=== PATIENT | female | born 2000 | race African-American/Black ===

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

== ENCOUNTER 2018-04-13 06:27 | Day surgery (SDC) | payer OTHER ==
[2018-04-12 12:55] VITALS: BMI 29.5
[2018-04-13] MEDS ORDERED: fentaNYL CITRATE 250 MCG/5 ML VIAL ONE (07:20)
[2018-04-13] MEDS ORDERED: LIDOCAINE HCL/PF 2% SDV 5ML VIAL ONE (07:20)
[2018-04-13] MEDS ORDERED: SUCCINYLCHOLINE CHLORIDE 200 MG/10 ML VIAL ONE (07:20)
[2018-04-13] MEDS ORDERED: MIDAZOLAM HCL 2 MG/2 ML SINGLE DOSE VIAL ONE ×3 (07:20→07:23)
[2018-04-13] MEDS ORDERED: PROPOFOL 20 ML ONE ×2 (07:20→09:28)
[2018-04-13] MEDS ORDERED: ROPIVACAINE HCL 0.5% 30ML VIAL ONE (07:22)
[2018-04-13] MEDS ORDERED: DEXAMETHASONE SOD PHOSPHATE 4 MG/1 ML VIAL ONE (08:06)
--- NOTE | 2018-04-13 08:09 | HP ---
Satellite [facility] - Chief Complaint Chief Complaint: left knee pain - Past Medical History Allergies/Adverse Reactions: Allergies Allergy/AdvReac Type Severity Reaction Status Date / Time aspirin Allergy Vomiting Verified 04/12/18 12:49 ibuprofen [From Motrin] Allergy Vomiting Verified 04/12/18 12:49 naproxen Allergy Vomiting Verified 04/12/18 12:49 Penicillins Allergy Rash Verified 04/12/18 12:49 ...LMP: 03/22/18 - Current Medications Current Medications: Home Medications Medication Instructions Recorded Norgestimate-Ethinyl Estradiol 1 each PO DAILY 04/12/18 [Trinessa Lo Tablet] Oxycodone HCl/Acetaminophen 1 - 2 tab PO Q6H #50 tab MDD 8 04/13/18 [Percocet 5-325 mg Tablet -] Satellite Physical Exam - Physical Examination Vital Signs: Vital Signs Period Temp Pulse Resp BP Sys/Chauhan Pulse Ox Last 24 Hr 98.7 F 86 20 138/71 General Appearance: Well Nourished, Well Developed, Alert & Oriented x3 ENT: Clear Lung: Normal air movement Heart: Regular rate & rhythm Extremities: Other (left knee- + swelling, + ttp, decr rom, + genna, + pivot, + ant draw, nvi MRI + ACL rupture) Neurological: Intact, Alert, Oriented Satellite Impression/Plan - Impression/Plan Impression: left knee ACL rupture Operative Procedure: left knee arthroscopy with ACL reconstruction using graftlink allograft Date to be Performed: 04/13/18
[2018-04-13] MEDS ORDERED: ceFAZolin SODIUM 1 GM VIAL IVPB ONE (08:15)
[2018-04-13] MEDS ORDERED: ceFAZolin SODIUM 1 GM VIAL ONE ×2 (08:20→12:27)
--- NOTE | 2018-04-13 09:33 | OP ---
Operative Note - Note: Operative Date: 04/13/18 ([facility]) Pre-Operative Diagnosis: left knee internal derangement Operation: left knee arthroscopy with ACL reconstruction using graftlink allogaft, PMM, PLM Implants: graftlink Post-Operative Diagnosis: Same as Pre-op Surgeon: Akshat Camargo Glaciologist: Ralph Lawrence Anesthesiologist/CRACKER DOUGH MIXER: Nena Grayson Anesthesia: General, Local Specimens Removed: shavings Estimated Blood Loss (mls): 5 Operative Report Dictated: Yes
[2018-04-13] MEDS ORDERED: ONDANSETRON 4 MG/2 ML VIAL IVPUSH PRN (09:40)
[2018-04-13] MEDS ORDERED: PROMETHAZINE HCL 25 MG/1 ML VIAL IVPUSH PRN (09:40)
[2018-04-13] MEDS ORDERED: oxyCODONE HCL 5 MG TABLET PO PRN ×2 (09:40)
[2018-04-13 11:15] VITALS: TEMP 97.8
[2018-04-13] MEDS ORDERED: oxyCODONE HCL 5 MG TABLET ONE (12:34)
--- NOTE | 2018-04-13 13:29 | OP ---
DATE OF OPERATION: 04/13/2018 PREOPERATIVE DIAGNOSIS: Left anterior cruciate ligament tear. POSTOPERATIVE DIAGNOSIS: Left anterior cruciate ligament tear plus medial and lateral meniscus tear. PROCEDURE: Left anterior cruciate ligament reconstruction with GraftLink and patella medial and lateral meniscectomies. SURGICAL ATTENDING: Akshat Camargo MD FAT PURIFICATION WORKER: PATTY Santa ANESTHESIA: Regional and general. CLOSURE: GraftLink with appropriate fixation and 3-0 nylon for skin. ESTIMATED BLOOD LOSS: Negligible. COMPLICATIONS: None. CONDITION: To recovery room in stable condition. DESCRIPTION OF PROCEDURE: The patient was taken to the operating room on April 13, 2018. General anesthesia as well as regional anesthesia was administered by the anesthesiologist. IV Kefzol was administered prophylactically prior to the case. The patient's left lower extremity was prepped and draped in the usual sterile fashion. The GraftLink graft was thawed and prepared on the back table for appropriate use with appropriate markings and sutures applied. The superomedial and medial and lateral infrapatellar portal sites were infiltrated with 1% Xylocaine with epinephrine. All portals were made with a 15 blade with blunt trocar. Outflow was superomedially. Working portal was inferomedially, and the scope portal was inferolaterally. The scope was placed up into the pouch and visualized to be clean. The medial and lateral gutters were visualized to be clean. The undersuface of the patella and trochlea were visualized to be intact with valgus stress on the knee. The medial compartment was entered. The medial meniscus was found to have flipped with bucket handle tear, so it was debrided back to smooth, stable meniscal tissue with meniscal biter and arthroscopic shaver as the morphology of the tear was nonfixable. The lateral compartment was entered. The lateral meniscus also had a large tear of its posterior horn, which was debrided back to smooth and stable meniscal tissue with meniscal biter and arthroscopic shaver. Next, the scope was placed in the notch. The ACL was visualized to be completely torn. Its stump was debrided. A notchplasty was performed gaining sufficient width and height to perform the procedure. Using an [id number] guide and using a retrodrill, a 10-mm tunnel approximately 25 mm was drilled in the posterior aspect on the notch low on the wall not violating the lateral cortex. A suture was put through this tunnel and placed a FiberStick suture exiting the portal for later shuttle use. Next, the tibial guide was used to visualize 10-mm retrograde tunnel just anterior to the PCL into the anterior and medial proximal tibia and again not violating the cortex. Through this tunnel again a FiberStick suture was deployed as a shuttle suture. Both sutures exited the inferomedial portal. The shuttle suture was used to pull a GraftLink into the knee and pull the femoral button up until it engaged the lateral cortex of the femur. It was then cycled to ensure that it was flush on bone. The toggle sutures were then used to toggle the graft up into the femur. The traction suture was then used to pull the tibial second of the graft into the tibial tunnel. A button was deployed as well. Toggle sutures were used with the knee in extension to tighten up the graft. The knee was taken through a full range of motion and from full extension to full flexion with excellent tensioning of the ACL, good crossing of the PCL. The sutures were cut snug. Post exam the patient had full range of motion, negative anterior and posterior drawer, negative Viv, negative pivot shift. All of the portals were closed using 3-0 nylon. Sterile pressure dressing was applied. The patient was awakened from anesthesia and transferred to recovery room in stable condition. Knee immobilizer was applied. Arianna [id number]
[2018-04-13] MEDS ORDERED: CEFAZOLIN 1 GM in DEXTROSE 5%-WATER - 50 ML IVPB ONE (14:00)
[2018-04-13 15:44] VITALS: BP 127/70; PULSE 100
--- NOTE | 2018-04-16 13:01 | PATH ---
Surgical Pathology Report Patient Name: [facility]. Rec. #: [id number] /Age/Gender: 2000 (Age: 17) / F Account: [id number] Location: [facility] SUR[facility]ICAL Taken: 04/13/2018 Received: 04/13/2018 Reported: 04/16/2018 Physicians: Akshat Camargo M.D. Specimen(s) Received LEFT KNEE SHAVINGS Clinical History Left ACL tear Final Diagnosis KNEE SHAVINGS, LEFT, ACL REPAIR WITH GRAFT LINK ALLOGRAFT: FRAGMENTS OF DENSE FIBROCONNECTIVE TISSUE, BONE, AND SYNOVIUM. Electronically Signed Mindy Cam M.D. Gross Description Received in formalin, labeled "left knee shavings" is a 4 x 4 x 1 cm aggregate of roberts to yellow soft tissue fragments. A customer success representative portion is submitted in one cassette. SHIN/04/13/2018 clif/04/13/2018
== END 2018-04-13 15:25 | disposition home or self-care (01) ==
LOC: JASU-SURG 06:27
PROVIDERS: ATTEND Orthopaedic Surgery
PROC: 0SBD4ZZ Excision of Left Knee Joint, Percutaneous Endoscopic Approach (ICD-10-PCS; 2018-04-13)
PROC: 0MQP4ZZ Repair Left Knee Bursa and Ligament, Percutaneous Endoscopic Approach (ICD-10-PCS; 2018-04-13)
PROC: 0SBD4ZZ Excision of Left Knee Joint, Percutaneous Endoscopic Approach (ICD-10-PCS; principal; 2018-04-13 08:00)
DX: S83.512A Sprain of anterior cruciate ligament of left knee, initial encounter (principal); S83.282A Other tear of lateral meniscus, current injury, left knee, initial encounter; S83.242A Other tear of medial meniscus, current injury, left knee, initial encounter; X58.XXXA Exposure to other specified factors, initial encounter; Y93.9 Activity, unspecified; Y92.9 Unspecified place or not applicable; Y99.9 Unspecified external cause status
CPT/HCPCS: 84703; 88304-TC; 94760; 97116-GP

== ENCOUNTER 2020-05-17 14:07 | Emergency (ER) | payer OTHER ==
[2020-05-17 14:16] VITALS: BP 131/72; PULSE 57; BMI 29.7
[2020-05-17] MEDS ORDERED: ONDANSETRON 4 MG/2 ML VIAL IVPUSH ONE (14:29)
[2020-05-17] MEDS ORDERED: ACETAMINOPHEN 1000 MG/100 ML VIAL (NON FORMULARY) IVPB ONE (14:29)
[2020-05-17] MEDS ORDERED: SODIUM CHLORIDE 0.9% 1000 ML INFUS.BAG IV ONE (14:29)
[2020-05-17] MEDS ORDERED: FAMOTIDINE 20 MG/50 ML IVPB 20 MG/50 ML MG IVPB ONE ×2 (14:29→14:40)
[2020-05-17] MEDS ORDERED: ONDANSETRON 4 MG/2 ML VIAL ONE (14:41)
[2020-05-17 15:09] LABS: BASO % 0.3 % (0-2.0); HEMATOCRIT 37.9 % (32.4-45.2); HEMOGLOBIN 12.6 GM/dl (10.7-15.3); LYMPH % 5.9 % (8-40); MCH 23.8 pg (25.7-33.7); MCHC 33.2 g/dl (32.0-36.0); MEAN CELL VOLUME 71.7 fl (80-96); MEAN PLT VOLUME 8.7 fl (7.5-11.1); NEUT % 89.8 % (42.8-82.8); PLATELET COUNT 331 K/MM3 (134-434); RBC 5.28 M/mm3 (3.60-5.2); WHITE BLOOD COUNT 16.2 K/mm3 (4.0-10.8)
[2020-05-17 15:27] LABS: ALBUMIN 4.6 g/dl (3.4-5.0); BILIRUBIN,TOTAL 1.5 mg/dl (0.2-1); CALCIUM 9.7 mg/dl (8.5-10); CREATININE 0.8 mg/dl (0.55-1.3); POTASSIUM 3.7 mmol/L (3.5-5.1); TOT PROT 7.7 g/dl (6.4-8.2)
[2020-05-17] MEDS ORDERED: METOCLOPRAMIDE HCL INJECTION 10 MG/2 ML VIAL IVPB ONE (16:38)
[2020-05-17] MEDS ORDERED: METOCLOPRAMIDE HCL INJECTION 10 MG/2 ML VIAL ONE (16:40)
[2020-05-17 17:41] LABS: EPITHELIAL CELLS RARE /hpf
--- NOTE | 2020-05-17 18:50 | PDOC ---
Documentation entered by Mindy Hurtado SCRIBE, acting as scribe for Darci Montague MD. Darci Montague MD: This documentation has been prepared by the scribeBryant Maria, SCRIBE, under my direction and personally reviewed by me in its entirety. I confirm that the documentation accurately reflects all work, treatment, procedures, and medical decision making performed by me. History of Present Illness - General Chief Complaint: Nausea/Vomiting Stated Complaint: NAUSEA/VOMITING Time Seen by Provider: 05/17/20 14:11 History Source: Patient Exam Limitations: No Limitations - History of Present Illness Initial Comments: 05/17/20 14:36 The patient is a 19 year old female with a significant past history of Asthma who presents to the emergency department with 3 days of nausea and vomiting. As per the patients mom, she states the patient had pizza with gamino on it Monday night, and woke up Monday morning with one episode of diarrhea which later followed with multiple episodes of persistent nausea and vomiting. Patient reports they went to Urgent Care where she was prescribed zofran with no relief of symptoms prompting her to the emergency department. Past History - Medical History Allergies/Adverse Reactions: Allergies Allergy/AdvReac Type Severity Reaction Status Date / Time aspirin Allergy Vomiting Verified 05/20/20 08:15 ibuprofen [From Motrin] Allergy Vomiting Verified 05/20/20 08:15 naproxen Allergy Vomiting Verified 05/20/20 08:15 Penicillins Allergy Rash Verified 05/20/20 08:15 Home Medications: Ambulatory Orders Albuterol Sulfate Inhaler - [Ventolin HFA Inhaler -] 1 - 2 inh PO QID PRN 05/17/20 Fluticasone Propionate [Flovent Hfa] 44 mcg IH ASDIR 05/17/20 Famotidine [Pepcid -] 20 mg PO PRN PRN 05/20/20 Anemia: No Asthma: Yes Cancer: No Cardiac Disorders: No CVA: No COPD: No CHF: No Dementia: No Diabetes: No GI Disorders: No Disorders: No HTN: No Hypercholesterolemia: No Liver Disease: No Seizures: No Thyroid Disease: No - Immunization History Immunization Up to Date: Yes - Psycho-Social/Smoking History Smoking Status: No Smoking History: Never smoked Have you smoked in the past 12 months: No Number of Cigarettes Smoked Daily: 0 - Substance Abuse Hx (Audit-C & DAST Scrn) How often the patient has a drink containing alcohol: Never Score: In Men: 4 or > Positive; In Women: 3 or > Positive: 0 Screen Result (Pos requires Nsg. Audit-10AR): Negative In the last yr the pt used illegal drug/Rx for NonMed reason: No Score: Yes response is considered Positive: 0 Screen Result (Positive result requires Nsg. DAST-10): Negative Review of Systems - Review of Systems Able to Perform ROS?: Yes Comments:: 05/17/20 14:36 ROS: A complete review of 10 out of 10 review of systems is taken and is negative apart from what is previously mentioned below and in the HPI. *Physical Exam - Vital Signs Last Vital Signs Temp Pulse Resp BP Pulse Ox 98.3 F 57 L 18 131/72 100 05/17/20 14:07 05/17/20 14:07 05/17/20 14:07 05/17/20 14:07 05/17/20 14:07 - Physical Exam 05/17/20 14:36 Vitals: Triage Vital signs reviewed General Appearance: no acute distress, well nourished well developed, Chest Wall: Nontender Cardiac: Regular rate and rhythm, no murmurs, no rubs, no gallops, Lungs: Clear to auscultation bilateral, good air movement bilaterally, Abdomen:+left upper quadrant tenderness to palpation. Soft, nondistended, normal bowel sounds. Rectal: Exam deferred Extremities: Full range of motion to all extremities, no cyanosis, clubbing, or edema Skin: Warm and dry, no rashes or lesions, no petechiae ED Treatment Course - LABORATORY CBC & Chemistry Diagram: 05/17/20 15:03 05/17/20 14:36 Medical Decision Making - Medical Decision Making 05/17/20 18:49 2-day history of multiple episodes of vomiting with left upper quadrant pain unable to tolerate fluids In the emergency department patient received fluids Zofran and Pepcid is now feeling much better. Reevaluation her left upper quadrant pain has improved Reevaluation abdominal examination 645 no rebound no guarding no lower abdominal discomfort no CVA tenderness to palpation minimal, almost completely gone left upper quadrant tenderness to palpation her laboratory analysis is notable for a leukocytosis I believe this to be secondary to either a viral or foodborne illness Discussed risks and benefits of CAT scan with patient given improving symptoms no abdominal pain and now the ability to tolerate p.o. we will hold off on a CAT scan at this time. Patient understands that should she spike a fever should her pain return and become persistent constant she will return to the emergency department for a CAT scan patient has Zofran at home very strict instructions discussed with patient she will follow-up with her doctor this week Findings, the need for follow-up and strict return instructions discussed with patient. Discharge - Discharge Information Problems reviewed: Yes Clinical Impression/Diagnosis: Nausea & vomiting Condition: Stable Disposition: HOME - Admission No - Follow up/Referral - Patient Discharge Instructions Patient Printed Discharge Instructions: DI for Vomiting -- Adult Additional Instructions: Take 1 pill Zofran tonight before you go to bed your next dose will be in the morning. Small frequent sips of water Gatorade or soup. If no vomiting for 24 hours okay to proceed to a bland diet tomorrow afternoon. Return to the emergency department for a CAT scan immediately should you develop a fever severe worsening abdominal pain especially if it is on the right side or lower in your abdomen follow-up with your doctor this week. - Post Discharge Activity Work/Back to School Note: Back to School
[2020-05-17 18:57] VITALS: TEMP 98
== END 2020-05-17 18:55 | disposition home or self-care (01) ==
LOC: FER 14:07
PROC: 3E033GC Introduction of Other Therapeutic Substance into Peripheral Vein, Percutaneous Approach (ICD-10-PCS; principal; 2020-05-17)
DX: R11.2 Nausea with vomiting, unspecified (principal)
CPT/HCPCS: 36415; 80053; 81003; 81015; 84703; 85025; 99284-25; J0131

== ENCOUNTER 2020-05-18 08:22 | Emergency (ER) | payer OTHER ==
--- NOTE | 2020-05-18 08:32 | PDOC ---
Rapid Medical Evaluation Medical Evaluation: Allergies Allergy/AdvReac Type Severity Reaction Status Date / Time aspirin Allergy Vomiting Verified 05/17/20 14:07 ibuprofen [From Motrin] Allergy Vomiting Verified 05/17/20 14:07 naproxen Allergy Vomiting Verified 05/17/20 14:07 Penicillins Allergy Rash Verified 05/17/20 14:07 05/18/20 08:24 19 yo F accompanied by her mother h/o asthma c/o abd cramping, nausea and non bloody vomiting x 3 days with one episode of non bloody diarrhea. denies f/c, sob, cp, back pain. seen at [place] yesterday, told she needs CTAP. unable to tolerate po. VSS appears uncomfortable A/P: Nausea, vomiting, abd pain labs, UA, upt
[2020-05-18 08:43] VITALS: TEMP 98.2; BMI 29.7
[2020-05-18] MEDS ORDERED: LACTATED RINGERS SOLUTION 1,000 ML/1,000 ML INFUS.BAG IV STA (09:16)
--- NOTE | 2020-05-18 09:16 | PDOC ---
History of Present Illness - General Chief Complaint: Nausea/Vomiting Stated Complaint: VOMITING Time Seen by Provider: 05/18/20 08:48 - History of Present Illness Initial Comments: 05/18/20 08:48 19yo F who presented yesterday for n/v at [facility] presents today w/ n/v and ABD pain. She ate a piece of gamino pizza on Monday night. Monday AM she had one episode of diarrhea and has had intractable vomiting since then. She went to urgent care that day and was d/c home w/ PO Zofran. She was unable to tolerate PO intake and kept losing her zofran in emesis. Sublingual zofran was called in. She presented to [facility] ED yesterday due to failure to resolve n/v. She was w/u for and intra ABD pathology, and then d/c home w/ return instructions. Emesis: non-bloody, clear, yellow green. no identifiable trigger. has happened >10 times. Diarrhea: one episode. Non bloody. No BM since then. has been passing flatus. ABD pain: Onset was Monday. focal, mostly epigastric, is constant and sharp, associated with vomiting, rates it 8/10. Denies fever, recent travel, cough, sore throat, dysuria, vaginal discharge, or non-menstrual vaginal bleeding. Endorses regular THC use (last time was last week), reduction in urine output, and regular sexual activity. Allergy to PCN and "stomach does not like ASA" Meds: none Nothing like this has ever happened before. Last PO intake was Monday night. regularly eats greasy/fatty foods PMH - none PSH - ACL repair and root canal SHx - +THC (marijuana) smoking, social EtOh ROS Psych - no mood change Skin - no rashes Neuro - no confusion, +1 episode of blurry vision HEENT - no sore throat, rhinorrhea, loss of vision, change of hearing MSK - no weakness or paresthesia Pulm - no SOB or CP CV - no racing or slow or irregular heartbeat ABD - +epigastric pain. - denies pain, discharge, bleeding Back - no back pain. PE: General: pale, uncomfortable, in mild distress due to ABD pain neuro: A/O x3 HEENT: AC/NT Pulm: CTAB CV: bradycardic, regular, normal S1/S2, no MGR, 2+ radial pulses ABD: not distended, no rashes. +bowel sounds. +epigastric tenderness to palpation. (-)McBurney's, Rovsings, rebound tenderness, CVA tenderness, suprapubic tenderness. Muphy's sign equivocal. : deferred MSK: 5/5 strength in UE/LE. sensation intact MDM 19yo F bounceback with intractable vomiting. WBC slightly elevated. normal Alkphos UA and hCG done yesterday -> deferred today CBC and CMP - looking for signs of infection, bleed, and perturbation to chemistry elevated bili (and up from yesterday) +fatty foods diet, elevated bili -> RUQ US to look at biliary tract. suspect cholecystitis/choledoco. normal LFTs suggest non-hepatic etiology. -> normal US -> ABD/pelvis CT scan -> read as normal. Will try haldol for cannabinoid hyperemesis. Pt consulted on this and agrees. 2mg IM haldol given -> pt reports 100% resolution of ABD pain and significant reduction in nausea. Will PO challenge and if tolerated will D/C home Pt informed about pericardial effusion and instructed to f/u with cardiology VERENA. 05/18/20 10:20 05/18/20 10:43 05/18/20 13:23 05/18/20 14:28 05/18/20 15:34 05/18/20 16:28 Past History - Medical History Allergies/Adverse Reactions: Allergies Allergy/AdvReac Type Severity Reaction Status Date / Time aspirin Allergy Vomiting Verified 05/18/20 08:30 ibuprofen [From Motrin] Allergy Vomiting Verified 05/18/20 08:30 naproxen Allergy Vomiting Verified 05/18/20 08:30 Penicillins Allergy Rash Verified 05/18/20 08:30 Home Medications: Ambulatory Orders Albuterol Sulfate Inhaler - [Ventolin Hfa Inhaler -] 1 - 2 inh PO QID PRN 05/17/20 Fluticasone Propionate [Flovent Hfa] 44 mcg IH ASDIR 05/17/20 Anemia: No Asthma: Yes Cancer: No Cardiac Disorders: No CVA: No COPD: No CHF: No Dementia: No Diabetes: No GI Disorders: No Disorders: No HTN: No Hypercholesterolemia: No Liver Disease: No Seizures: No Thyroid Disease: No - Immunization History Immunization Up to Date: Yes - Psycho-Social/Smoking History Smoking Status: No Smoking History: Never smoked Have you smoked in the past 12 months: No Number of Cigarettes Smoked Daily: 0 Information on smoking cessation initiated: No - Substance Abuse Hx (Audit-C & DAST Scrn) How often the patient has a drink containing alcohol: Never Score: In Men: 4 or > Positive; In Women: 3 or > Positive: 0 Screen Result (Pos requires Nsg. Audit-10AR): Negative In the last yr the pt used illegal drug/Rx for NonMed reason: No Score: Yes response is considered Positive: 0 Screen Result (Positive result requires Nsg. DAST-10): Negative *Physical Exam - Vital Signs Last Vital Signs Temp Pulse Resp BP Pulse Ox 98.2 F 64 18 126/69 99 05/18/20 08:24 05/18/20 08:24 05/18/20 08:24 05/18/20 08:24 05/18/20 08:24 ED Treatment Course - LABORATORY CBC & Chemistry Diagram: 05/18/20 09:12 05/18/20 09:12 Discharge - Discharge Information Problems reviewed: Yes Clinical Impression/Diagnosis: Cyclical vomiting, Loss of appetite, Nausea & vomiting, Cannabinoid hyperemesis syndrome, Pericardial effusion Abdominal pain Qualifiers: Abdominal location: unspecified location Qualified Code(s): R10.9 - Unspecified abdominal pain Condition: Improved Disposition: HOME - Admission No - Follow up/Referral Referrals: Allison Herzog [Primary Care Provider] - Yanick Sahu MD [Staff Physician] - - Patient Discharge Instructions Patient Printed Discharge Instructions: DI for Vomiting -- Adult, DI for Poor Appetite Additional Instructions: You presented to the ED because you were vomiting for multiple days. In the ED, we ran multiple tests, including an ultrasound, a CT scan, and an EKG. We gave you anti-nausea and antiemetic (medicine that helps suppress vomiting) medications. We also gave you a medicine called Haldoperidol. There is a documented efficacy in giving haldoperidol to treat vomiting caused by cannabinoid hyperemesis. You were found to have a potential pericardial effusion (fluid around your heart). Please follow up as soon as possible with cardiology (Dr. Sahu - [phone]). Please follow up with your PCP this week, if possible. You must return to the Emergency Department with any new complaints, if your symptoms persist and do not improve or if you develop any other new or worsening concerns. If you have any difficulty breathing please return to the ED immediately. As discussed, please call to follow up with your Primary Care physician in 1-2 days to discuss what happened to you in the emergency room, and make sure you are being looked after and taken care of. Your emergency room visit is not complete without this follow up appointment. Thank you for coming to the [facility]. We hope you feel better soon! - Post Discharge Activity
[2020-05-18] MEDS ORDERED: ACETAMINOPHEN 1000 MG/100 ML VIAL (NON FORMULARY) IVPB ONE (09:17)
[2020-05-18] MEDS ORDERED: METOCLOPRAMIDE HCL INJECTION 10 MG/2 ML VIAL IVPB ONE (09:17)
[2020-05-18] MEDS ORDERED: METOCLOPRAMIDE HCL INJECTION 10 MG/2 ML VIAL ONE (09:22)
[2020-05-18] MEDS ORDERED: ACETAMINOPHEN INJECTION 100 ML IVPB ONE (09:22)
[2020-05-18 09:36] LABS: BASO % 0.2 % (0-2.0); EOS % 0.1 % (0-4.5); HEMATOCRIT 37.1 % (32.4-45.2); HEMOGLOBIN 11.6 GM/dL (10.7-15.3); LYMPH % 10.8 % (8-40); MCHC 31.2 g/dl (32.0-36.0); MEAN CELL VOLUME 73.7 fl (80-96); MEAN PLT VOLUME 8.1 fl (7.5-11.1); MONO % 4.5 % (3.8-10.2); NEUT % 84.4 % (42.8-82.8); PLATELET COUNT 302 K/MM3 (134-434); RBC 5.04 M/mm3 (3.60-5.2); WHITE BLOOD COUNT 11.7 K/mm3 (4.0-10.0)
[2020-05-18 10:01] LABS: ALBUMIN 3.9 g/dl (3.4-5.0); BILIRUBIN,TOTAL 1.7 mg/dL (0.2-1); BLOOD UREA NITROGEN 15.5 mg/dL (7-18); CALCIUM 9.1 mg/dL (8.5-10.1); CREATININE 0.9 mg/dL (0.55-1.3); POTASSIUM 3.7 mmol/L (3.5-5.1); TOT PROT 7.2 g/dl (6.4-8.2)
[2020-05-18] MEDS ORDERED: SUCRALFATE 1 GM TABLET (FP) ONE (10:11)
[2020-05-18] MEDS ORDERED: SUCRALFATE 1 GM TABLET (FP) PO SCH (10:15)
[2020-05-18] MEDS ORDERED: ONDANSETRON 4 MG/2 ML VIAL IVPUSH ONE (11:05)
[2020-05-18] MEDS ORDERED: LACTATED RINGERS SOLUTION 1000 ML INFUS.BAG IV ONE ×2 (11:06→14:57)
[2020-05-18] MEDS ORDERED: FAMOTIDINE 20 MG/50 ML IVPB 20 MG/50 ML MG IVPB ONE ×2 (13:22→13:46)
[2020-05-18] MEDS ORDERED: HALOPERIDOL LACTATE 5 MG/ML IM ONE (14:14)
[2020-05-18] MEDS ORDERED: HALOPERIDOL LACTATE 5 MG/ML ONE (14:53)
--- NOTE | 2020-05-18 16:23 | PDOC ---
Documentation entered by Anderson Harding SCRIBE, acting as scribe for Kevin Louie MD. Kevin Louie MD: This documentation has been prepared by the davidibe, Anderson Harding SCRIBE, under my direction and personally reviewed by me in its entirety. I confirm that the documentation accurately reflects all work, treatment, procedures, and medical decision making performed by me. Attending Attestation - Resident Resident Name: Duran Arevalo - ED Attending Attestation I have performed the following: I have examined & evaluated the patient, The case was reviewed & discussed with the resident, I agree w/resident's findings & plan, Exceptions are as noted - HPI HPI: 05/18/20 09:54 The patient is a 19 year old female with a significant past medical history of asthma who presents to the ED for evaluation of four days of persistent nausea and vomiting. Pt reports she ate gamino pizza Monday night and woke up Monday (05/16/2020) with one episode of brown non dark diarrhea and nonbloody non bilious vomit. Pt went to Urgent Care Monday and received oral Zofran with no relief. Pt went to [facility] Monday (05/17/2020) for evaluation of symptoms, felt better with treatment and discharged with return precautions. Symptoms recurred yesterday evening, prompting her to come to the ED today. Reports intermittent epigastric cramping prior to vomiting but denies abdominal pain otherwise. She reports weekly marijuana use. No sick contacts or recent travel. The patient denies chest pain and shortness of breath. Denies fever, chills. Denies dizziness, focal weakness/numbness. Denies any other symptoms. Allergies:aspirin, ibuprofen, naproxen, Penicillins PCP: Dr. Herzog - Physicial Exam PE: 05/18/20 10:28 GENERAL: Awake, alert, and fully oriented, in no acute distress but appears uncomfortable EYES: PERRLA, EOMI, sclera anicteric, conjunctiva clear ENT: Oropharynx clear without exudates. Moist mucosa NECK: Normal ROM, supple, no lymphadenopathy, JVD, or masses LUNGS: Breath sounds equal, clear to auscultation bilaterally. No wheezes, and no crackles HEART: Regular rate and rhythm, normal S1 and S2, no murmurs, rubs or gallops ABDOMEN: Soft, mild epigsatric ttp, neg murphys sign, no other ttp, normoactive bowel sounds. No guarding, no rebound. No masses. No CVAT EXTREMITIES: Normal range of motion, no edema. No clubbing or cyanosis. No cords, erythema, or tenderness BACK: No midline spinal tenderness in cervical/thoracic/lumbar region NEUROLOGICAL: Normal speech, cranial nerves intact, equal stregnth and sensation b/l SKIN: Warm, Dry, normal turgor, no rashes or lesions noted. - Medical Decision Making 05/18/20 16:14 19-year-old female presents emergency department with many days of nausea and vomiting and poor PO tolerance. Patient initially sought care at urgent care, and then [place] emergency department yesterday but presents today with persistence of symptoms. Vitals within normal limits. Exam with mild epigastric tenderness to palpation. Differential includes pancreatitis versus gastritis versus gastroenteritis versus cholecystitis versus enteritis versus cannabinoid hyperemesis. Labs with mild leukocytosis and mildly elevated bilirubin, possibly secondary to dehydration. Urine test and urinalysis from yesterday reviewed and are unremarkable. Right upper quadrant ultrasound with small pericardial effusion which patient denies history of but no other acute findings. Patient with persistent nausea and epigastric abdominal pain and thus CT scan was ordered which was negative for acute pathology but again visualized small pericardial effusion. Despite Reglan and Zofran, patient with persistent nausea. At this point the diagnosis of cannabinoid hyperemesis syndrome was considered given patient's frequent marijuana use. After discussion with patient, 2 mg of IV Haldol was slowly pushed over 2 minutes while patient was on environmental monitoring specialist with good symptomatic response. Patient is currently tolerating p.o. We discussed the finding of small pericardial effusion seen on ultrasound and CAT scan with the patient and strongly advised her to follow-up for this finding. Patient expresses understanding. She feels better and requests discharge. Return precautions have been discussed. I discussed the physical exam findings, ancillary test results and final diagnoses with the patient. I answered all of the patient's questions. The patient was satisfied with the care received and felt comfortable with the discharge plan and treatment plan. The patient will call their primary care physician within 24 hours to arrange follow-up and will return to the Emergency Department with any new, persistent or worsening symptoms. Heart Score/ECG Review #1 05/18/20 16:14 Sinus bradycardia with sinus arrhythmia likely secondary to respiratory variation. Rate 47. Normal axis. No ST elevations. Normal QTC. Discharge - Discharge Information Problems reviewed: Yes Clinical Impression/Diagnosis: Nausea & vomiting, Cannabinoid hyperemesis syndrome Abdominal pain Qualifiers: Abdominal location: unspecified location Qualified Code(s): R10.9 - Unspecified abdominal pain Condition: Improved - Admission No - Follow up/Referral Referrals: Allison Herzog [Primary Care Provider] - - Patient Discharge Instructions - Post Discharge Activity
[2020-05-18 16:41] VITALS: BP 120/75; PULSE 66
--- NOTE | 2020-05-19 12:06 | EKG ---
Test Reason : Blood Pressure : / mmHG Vent. Rate : 047 BPM Atrial Rate : 047 BPM P-R Int : 150 ms QRS Dur : 086 ms QT Int : 468 ms P-R-T Axes : 074 068 039 degrees QTc Int : 414 ms SINUS BRADYCARDIA WITH SINUS ARRHYTHMIA OTHERWISE NORMAL ECG WHEN COMPARED WITH ECG OF 08-NOV-2014 17:57, NO SIGNIFICANT CHANGE WAS FOUND Confirmed by Edwin Pacheco MD ([id number]) on 05/19/2020 12:05:47 PM Referred By: Confirmed By:Edwin Pacheco MD
== END 2020-05-18 16:39 | disposition home or self-care (01) ==
LOC: JER 08:22
PROC: 3E0333Z Introduction of Anti-inflammatory into Peripheral Vein, Percutaneous Approach (ICD-10-PCS; principal; 2020-05-18)
PROC: 3E033GC Introduction of Other Therapeutic Substance into Peripheral Vein, Percutaneous Approach (ICD-10-PCS; 2020-05-18)
DX: R11.2 Nausea with vomiting, unspecified (principal); F12.188 Cannabis abuse with other cannabis-induced disorder; R10.9 Unspecified abdominal pain
CPT/HCPCS: 36415; 74177-TC; 76700-TC; 80053; 83690; 85025; 93005; 93010; 99285-25; J0131; Q9967

== ENCOUNTER 2020-05-20 08:14 | Inpatient (IN) | payer OTHER ==
--- NOTE | 2020-05-20 08:32 | PDOC ---
History of Present Illness - General Chief Complaint: Vomiting/Diarrhea Stated Complaint: NAUSEA,VOMITING Time Seen by Provider: 05/20/20 08:32 - History of Present Illness Initial Comments: 05/20/20 09:33 Chief complaint: Nausea and vomiting HPI: Nausea and vomiting for several days. First treated in the ER 719, and again 720. Received IV fluids Zofran and Pepcid. Was feeling better yesterday, but this morning the symptoms recurred. Only one episode of vomiting yesterday morning, but several episodes of vomiting and retching this morning. Tried taking Pepcid, but vomited it up. Did not attempt to use sublingual Zofran as directed. Review of systems: No diarrhea, abdominal pain, chest pain, shortness of breath, fever or chills, URI symptoms. Remainder of systems reviewed and negative Past medical history: Mild asthma, controlled on inhaler, no recent respiratory symptoms. Social history: Admits to frequent use of marijuana, and she has been told her symptoms may be due to marijuana use. She last smoked marijuana on Monday. ER evaluation including 2 sets of labs, abdominal ultrasound, abdominal pelvis CT, urinalysis and urine test failed to show any significant abnormalities, other than a small pericardial effusion, significance of which is uncertain, but does not suggest correlation with current symptoms Family history: Reviewed and noncontributory Physical exam: Alert and oriented well-developed well-nourished, mild distress due to nausea. Cooperative Afebrile, vital signs normal HEENT: Normal. Ears clear without tenderness. No hearing deficit. Mucous membranes are moist Neck supple without bruit mass or nodes Lungs clear with full breath sounds bilaterally. No wheezes rales or rhonchi CV regular without murmur rub or gallop. No JVD or edema. No bruits. Rate regular 70/min Abdomen nondistended. Bowel sounds normal. Soft without mass tenderness organomegaly. No CVAT Skin clear, no rash, adequate turgor and wet mucous membranes Neurological C2 to 12 intact. Strength full and symmetric. No focal sensorimotor deficits. Gait stable and unimpaired. Cerebellar intact Impression: Recurrent nausea and vomiting, possibly related to the use of marijuana. Recent ER work-ups x2 have been negative for any other etiology Plan: IV fluids and Zofran. Recheck labs. Observe. Past History - Medical History Allergies/Adverse Reactions: Allergies Allergy/AdvReac Type Severity Reaction Status Date / Time aspirin Allergy Vomiting Verified 05/20/20 08:15 ibuprofen [From Motrin] Allergy Vomiting Verified 05/20/20 08:15 naproxen Allergy Vomiting Verified 05/20/20 08:15 Penicillins Allergy Rash Verified 05/20/20 08:15 Home Medications: Ambulatory Orders Albuterol Sulfate Inhaler - [Ventolin Hfa Inhaler -] 1 - 2 inh PO QID PRN 05/17/20 Fluticasone Propionate [Flovent Hfa] 44 mcg IH ASDIR 05/17/20 Famotidine [Pepcid -] 20 mg PO PRN PRN 05/20/20 Anemia: No Asthma: Yes Cancer: No Cardiac Disorders: No CVA: No COPD: No CHF: No Dementia: No Diabetes: No GI Disorders: No Disorders: No HTN: No Hypercholesterolemia: No Liver Disease: No Seizures: No Thyroid Disease: No - Immunization History Immunization Up to Date: Yes - Psycho-Social/Smoking History Smoking Status: No Smoking History: Never smoked Have you smoked in the past 12 months: No Number of Cigarettes Smoked Daily: 0 Information on smoking cessation initiated: Yes - Substance Abuse Hx (Audit-C & DAST Scrn) How often the patient has a drink containing alcohol: Never Score: In Men: 4 or > Positive; In Women: 3 or > Positive: 0 Screen Result (Pos requires Nsg. Audit-10AR): Negative In the last yr the pt used illegal drug/Rx for NonMed reason: No Score: Yes response is considered Positive: 0 Screen Result (Positive result requires Nsg. DAST-10): Negative *Physical Exam - Vital Signs Last Vital Signs Temp Pulse Resp BP Pulse Ox 98.3 F 55 L 20 128/82 98 05/20/20 08:15 05/20/20 08:15 05/20/20 08:15 05/20/20 08:15 05/20/20 08:15 ED Treatment Course - LABORATORY CBC & Chemistry Diagram: 05/20/20 09:06 05/20/20 09:06 Medical Decision Making - Medical Decision Making 05/20/20 10:26 Patient still feels nauseated and has occasional retching, though no vomiting. She does not appear to be uncomfortable. There is no abdominal pain. It appears that she is trying to make herself throw up. Lab work shows no sign of significant dehydration but the potassium is mildly depressed at 3.1. Potassium supplementation IV as well as Ativan as a mild anxiolytic administered. Further observation. 05/20/20 12:53 Patient feels better. Nausea resolved. Taking small amounts of p.o. fluids and ate some crackers. Advised to continue Zofran at home, continue drinking small amounts of fluids and follow-up with GI specialist as directed. Return to ER if symptoms worsen. Fully ambulatory and in no distress at discharge with mother. Discharge - Discharge Information Problems reviewed: Yes Clinical Impression/Diagnosis: Hypokalemia Condition: Improved Disposition: HOME - Admission No - Follow up/Referral - Patient Discharge Instructions Patient Printed Discharge Instructions: DI for Hypokalemia, DI for Nausea -- Adult, DI for Vomiting -- Adult Additional Instructions: Continue to use Zofran (ondansetron) two tablets under the tongue every 4-6 hours while awake. Drink lots of fluids. Refrain from the use of marijuana or any other nonprescription drugs. Follow-up with manufacturing chief engineer in 2 to 3 days. - Post Discharge Activity
[2020-05-20] MEDS ORDERED: SODIUM CHLORIDE 1,000 ML IV STA (08:51)
[2020-05-20] MEDS ORDERED: ONDANSETRON 4 MG/2 ML VIAL IVPB ONE (08:51)
[2020-05-20] MEDS ORDERED: ONDANSETRON 4 MG/2 ML VIAL ONE (08:52)
[2020-05-20 09:39] LABS: BASO % 0.5 % (0-2.0); EOS % 0.6 % (0-4.5); HEMATOCRIT 38.8 % (32.4-45.2); HEMOGLOBIN 12.3 GM/dl (10.7-15.3); LYMPH % 10.4 % (8-40); MCH 23.2 pg (25.7-33.7); MCHC 31.7 g/dl (32.0-36.0); MEAN CELL VOLUME 73.1 fl (80-96); MEAN PLT VOLUME 8.6 fl (7.5-11.1); MONO % 5.1 % (3.8-10.2); NEUT % 83.4 % (42.8-82.8); PLATELET COUNT 325 K/MM3 (134-434); RDW 13.4 % (11.6-15.6); WHITE BLOOD COUNT 10.7 K/mm3 (4.0-10.8)
[2020-05-20 09:41] LABS: ADD RBC MORPHOLOGY YES
[2020-05-20 09:45] LABS: ALBUMIN 4.5 g/dl (3.4-5.0); BILIRUBIN,TOTAL 1.6 mg/dl (0.2-1); CALCIUM 9.2 mg/dl (8.5-10); CREATININE 0.8 mg/dl (0.55-1.3); POTASSIUM 3.1 mmol/L (3.5-5.1); TOT PROT 7.4 g/dl (6.4-8.2)
[2020-05-20] MEDS ORDERED: LORazepam 2 MG/ML SDV VIAL ONE (10:23)
[2020-05-20] MEDS ORDERED: KCL 10 MEQ IVPB 10 MEQ/100 ML INFUS.BAG IVPB SCH (10:30)
[2020-05-20 10:31] LABS: ANISOCYTOSIS 1+
[2020-05-20] MEDS ORDERED: KCL 10 MEQ IVPB 10 MEQ/100 ML INFUS.BAG IVPB ONE (10:32)
--- NOTE | 2020-05-20 14:14 | HP ---
CHIEF COMPLAINT: Nausea, vomiting PCP: Dr. Herzog HISTORY OF PRESENT ILLNESS: 20 year-old female with a PMH significant for asthma, presented to the ED for the third time this week with complaint of nausea and vomiting. Received IV fluids Zofran and Pepcid. Was feeling better yesterday, but this morning the symptoms recurred. Only one episode of vomiting yesterday morning, but several episodes of vomiting and retching this morning. Tried taking Pepcid, but vomited it up. Did not attempt to use sublingual Zofran as directed. No diarrhea, abdominal pain, chest pain, shortness of breath, fever or chills, URI symptoms. Patient admits to frequent use of marijuana, and she has been told her symptoms may be due to marijuana use. She last smoked marijuana on Monday. ED evaluations, including 2 sets of labs, abdominal ultrasound, abdominal pelvis CT, urinalysis and urine test, failed to show any significant abnormalities, other than a small pericardial effusion, significance of which is uncertain, but does not suggest correlation with current symptoms. ER course was notable for: (1) K 3.1 (2) (3) Recent Travel: PAST MEDICAL HISTORY: Asthma PAST SURGICAL HISTORY: Left knee arthroscopy/ACL reconstruction 2018 Social History: Smoking: never Alcohol: no Drugs: frequent marijuana Allergies aspirin Allergy (Verified 05/20/20 08:15) Vomiting ibuprofen [From Motrin] Allergy (Verified 05/20/20 08:15) Vomiting naproxen Allergy (Verified 05/20/20 08:15) Vomiting Penicillins Allergy (Verified 05/20/20 08:15) Rash HOME MEDICATIONS: Home Medications Medication Instructions Recorded Albuterol Sulfate Inhaler - 1 - 2 inh PO QID PRN 05/17/20 [Ventolin Hfa Inhaler -] Fluticasone Propionate [Flovent 44 mcg IH ASDIR 05/17/20 Hfa] Famotidine [Pepcid -] 20 mg PO PRN PRN 05/20/20 REVIEW OF SYSTEMS CONSTITUTIONAL: Absent: fever, chills, diaphoresis, generalized weakness, malaise, loss of appetite, weight change HEENT: Absent: rhinorrhea, nasal congestion, throat pain, throat swelling, difficulty swallowing, mouth swelling, ear pain, eye pain, visual changes CARDIOVASCULAR: Absent: chest pain, syncope, palpitations, irregular heart rate, lightheadedness, peripheral edema RESPIRATORY: Absent: cough, shortness of breath, dyspnea with exertion, orthopnea, wheezing, stridor, hemoptysis GASTROINTESTINAL: +nausea, +vomiting Absent: abdominal pain, abdominal distension, diarrhea, constipation, melena, hematochezia GENITOURINARY: Absent: dysuria, frequency, urgency, hesitancy, hematuria, flank pain, genital pain MUSCULOSKELETAL: Absent: myalgia, arthralgia, joint swelling, back pain, neck pain SKIN: Absent: rash, itching, pallor HEMATOLOGIC/IMMUNOLOGIC: Absent: easy bleeding, easy bruising, lymphadenopathy, frequent infections ENDOCRINE: Absent: unexplained weight gain, unexplained weight loss, heat intolerance, cold intolerance NEUROLOGIC: Absent: headache, focal weakness or paresthesias, dizziness, unsteady gait, seizure, mental status changes, bladder or bowel incontinence PSYCHIATRIC: Absent: anxiety, depression, suicidal or homicidal ideation, hallucinations. PHYSICAL EXAMINATION Vital Signs - 24 hr 05/20/20 05/20/20 08:15 12:47 Temperature 98.3 F 98.6 F Pulse Rate 55 L Pulse Rate [ 62 Right] Respiratory 20 20 Rate Blood Pressure 128/82 Blood Pressure 104/61 [Left Arm] O2 Sat by Pulse 98 100 Oximetry (%) GENERAL: Awake, alert, and fully oriented, in no acute distress. HEAD: Normal with no signs of trauma. EYES: Pupils equal, round and reactive to light, extraocular movements intact, sclera anicteric, conjunctiva clear. No lid lag. EARS, NOSE, THROAT: Ears normal, nares patent, oropharynx clear without exudates. Moist mucous membranes. NECK: Normal range of motion, supple without lymphadenopathy, JVD, or masses. LUNGS: Breath sounds equal, clear to auscultation bilaterally. No wheezes, and no crackles. No accessory muscle use. HEART: Regular rate and rhythm, normal S1 and S2 without murmur, rub or gallop. ABDOMEN: Soft, nontender, not distended, normoactive bowel sounds, no guarding, no rebound, no masses. No hepatomegaly or splenomegaly. MUSCULOSKELETAL: Normal range of motion at all joints. No bony deformities or tenderness. No CVA tenderness. UPPER EXTREMITIES: 2+ pulses, warm, well-perfused. No cyanosis. No clubbing. No peripheral edema. LOWER EXTREMITIES: 2+ pulses, warm, well-perfused. No calf tenderness. No peripheral edema. NEUROLOGICAL: Cranial nerves II-XII intact. Normal speech. Normal gait. PSYCHIATRIC: Cooperative. Good eye contact. Appropriate mood and affect. SKIN: Warm, dry, normal turgor, no rashes or lesions noted, normal capillary refill. Laboratory Results - last 24 hr 05/20/20 05/20/20 05/20/20 09:06 09:06 09:06 WBC 10.7 RBC 5.30 H Hgb 12.3 Hct 38.8 MCV 73.1 L MCH 23.2 L MCHC 31.7 L RDW 13.4 Plt Count 325 MPV 8.6 Absolute Neuts (auto) 8.9 Neutrophils % 83.4 H Lymphocytes % 10.4 Monocytes % 5.1 Eosinophils % 0.6 Basophils % 0.5 Hypochromia 1+ Anisocytosis 1+ Microcytosis 1+ Sodium 136 Potassium 3.1 L Chloride 99 Carbon Dioxide 22 Anion Gap 15 BUN 14.0 Creatinine 0.8 Est GFR (CKD-EPI)AfAm 121.29 Est GFR (CKD-EPI)NonAf 104.65 Random Glucose 83 Calcium 9.2 Total Bilirubin 1.6 H AST 22 ALT 35 Alkaline Phosphatase 50 Total Protein 7.4 Albumin 4.5 Lipase 79 ASSESSMENT/PLAN: 20 year-old female with a PMH significant for asthma and frequent marijuana use admitted for nausea and vomiting. Nausea, vomiting likely secondary to gastroenteritis --unable to tolerate PO --afebrile, no leukocytosis --imaging studies unrevealing --keep NPO --IV fluids --Zofran PRN --GI consult Visit type - Emergency Visit Emergency Visit: Yes ED Registration Date: 05/20/20 Care time: The patient presented to the Emergency Department on the above date and was hospitalized for further evaluation of their emergent condition. - New Patient This patient is new to me today: Yes Date on this admission: 06/16/20 - Critical Care Critical Care patient: No
[2020-05-20] MEDS ORDERED: DEXTROSE 5%-NORMAL SALINE 1,000 ML IV SCH (14:45)
[2020-05-20] MEDS ORDERED: ONDANSETRON 4 MG/2 ML VIAL IVPUSH PRN (15:00)
[2020-05-20 18:23] VITALS: BMI 28.1
[2020-05-20] MEDS: POTASSIUM CHLORIDE TABS 20 MEQ TABLET.ER (FP) PO ONE ×2 (23:19→23:36)
[2020-05-21] MEDS: KCL 10 MEQ IVPB 10 MEQ/100 ML INFUS.BAG IVPB SCH ×2 (00:07→03:49)
[2020-05-21 06:59] VITALS: TEMP 98.3
[2020-05-21 08:07] LABS: CALCIUM 8.7 mg/dl (8.5-10); CREATININE 0.7 mg/dl (0.55-1.3); POTASSIUM 3.1 mmol/L (3.5-5.1)
--- NOTE | 2020-05-21 08:34 | PN ---
Progress Note (short form) - Note Progress Note: Patient seen and consult dictated. Patient with several days of the acute onset of N/V ??after eating pizza with gamino ?reheated. Currently feels improved with recent testing including CT, sono, labs unremarkable. Also with hx of marijuana use. Suspect gastroenteritis - resolving symptoms at present. Would begin on PO liquids and advance as tolerated. If stable, can discharge home.
[2020-05-21] MEDS ORDERED: POTASSIUM CHLORIDE TABS 20 MEQ TABLET.ER (FP) PO SCH (09:00)
[2020-05-21 10:01] VITALS: BP 110/63; PULSE 50
--- NOTE | 2020-05-21 11:58 | DS ---
Physical Exam: SUBJECTIVE: Patient seen and examined. Feeling better. No further episodes of nausea or vomiting. Tolerating clears. OBJECTIVE: Vital Signs Period Temp Pulse Resp BP Sys/Chauhan Pulse Ox Last 24 Hr 98.3 F-98.6 F 50-65 17-20 102-120/53-77 98-100 PHYSICAL EXAM GENERAL: The patient is awake, alert, and fully oriented, in no acute distress. HEAD: Normal with no signs of trauma. EYES: PERRL, extraocular movements intact, sclera anicteric, conjunctiva clear. ENT: Ears normal, nares patent, oropharynx clear without exudates, moist mucous membranes. NECK: Trachea midline, full range of motion, supple. LUNGS: Breath sounds equal, clear to auscultation bilaterally, no wheezes, no crackles, no accessory muscle use. HEART: Regular rate and rhythm, S1, S2 without murmur, rub or gallop. ABDOMEN: Soft, nontender, nondistended, normoactive bowel sounds, no guarding, no rebound, no hepatosplenomegaly, no masses. EXTREMITIES: 2+ pulses, warm, well-perfused, no edema. NEUROLOGICAL: Cranial nerves II through XII grossly intact. Normal speech, gait not observed. PSYCH: Normal mood, normal affect. SKIN: Warm, dry, normal turgor, no rashes or lesions noted. LABS Laboratory Results - last 24 hr 05/21/20 07:27 Sodium 138 Potassium 3.1 L Chloride 104 Carbon Dioxide 23 Anion Gap 11 BUN 9.0 Creatinine 0.7 Est GFR (CKD-EPI)AfAm 142.54 Est GFR (CKD-EPI)NonAf 122.98 Random Glucose 94 Calcium 8.7 Magnesium 2.0 HOSPITAL COURSE: Date of Admission:05/20/20 Date of Discharge: 05/21/20 Pre hospital course 20 year-old female with a PMH significant for asthma, presented to the ED for the third time this week with complaint of nausea and vomiting. Received IV fluids Zofran and Pepcid. Was feeling better yesterday, but this morning the symptoms recurred. Only one episode of vomiting yesterday morning, but several episodes of vomiting and retching this morning. Tried taking Pepcid, but vomited it up. Did not attempt to use sublingual Zofran as directed. No diarrhea, abdominal pain, chest pain, shortness of breath, fever or chills, URI symptoms. Patient admits to frequent use of marijuana, and she has been told her symptoms may be due to marijuana use. She last smoked marijuana on Monday. ED evaluations, including 2 sets of labs, abdominal ultrasound, abdominal pelvis CT, urinalysis and urine test, failed to show any significant abnormalities, other than a small pericardial effusion, significance of which is uncertain, but does not suggest correlation with current symptoms. ER course (1) K 3.1 Subsequent hospital course 20 year-old female with a PMH significant for asthma and frequent marijuana use admitted for gastroenteritis. Nausea, vomiting likely secondary to gastroenteritis --imaging studies negative for acute pathology, no fever, no leukocytosis --did well overnight, no further episodes n/v --tolerating clears --seen and evaluated by GI Small pericardial effusion --seen on CT scan, no correlation with current symptoms --recommended patient follow up with cardiology Dr. Candy Mosquera Hypokalemia --K repleted Minutes to complete discharge: 35 Discharge Summary Problems reviewed: Yes Reason For Visit: CYCLIC VOMITING SYNDROME, HYPOKALEMIA Current Active Problems Hypokalemia (Acute) Condition: Improved - Instructions Diet, Activity, Other Instructions: Advance your diet very slowly. Stick with clear liquids for another 24 hours. T hen add easy to digest foods like bananas, rice, potatoes, pasta. Eat only what agrees with you. Drink plenty of fluids. You indicated you wanted to follow up with a brass pourer. Contact information for Dr. Candy Mosquera is enclosed in this discharge packet. Return to the emergency department for any new or worsening symptoms. Referrals: Candy Mosquera MD [Staff Physician] - 1 Week Disposition: HOME - Home Medications Comprehensive Discharge Medication List: Ambulatory Orders Albuterol Sulfate Inhaler - [Ventolin HFA Inhaler -] 1 - 2 inh PO QID PRN 05/17/20 Fluticasone Propionate [Flovent Hfa] 44 mcg IH ASDIR 05/17/20 Famotidine [Pepcid -] 20 mg PO PRN PRN 05/20/20 This patient is new to me today: No Emergency Visit: Yes ED Registration Date: 05/20/20 Care time: The patient presented to the Emergency Department on the above date and was hospitalized for further evaluation of their emergent condition. Critical Care patient: No - Discharge Referral Referred to [facility] Med [facility].C.: No
--- NOTE | 2020-05-21 21:55 | CONS ---
DATE OF CONSULTATION: 05/21/2020 HISTORY: Asked to evaluate this 20-year-old female admitted with nausea, vomiting, and abdominal discomfort. The patient developed the acute onset of abdominal complaints including nausea and vomiting after eating pizza with gamino. She went to the emergency room on May 17 and was given IV fluids, Zofran, and Pepcid and returned again the next day for similar complaints. She was admitted subsequently for continued episodes of nausea and vomiting and has been treated with IV fluids. She had evaluation in the emergency room including various tests including sonogram, CAT scan, and urine tests all of which were essentially unremarkable. The patient does have a history of marijuana use but has not had any symptoms suggestive of cyclical vomiting syndrome due to excess marijuana use. Currently, she is resting comfortably in bed and states that her nausea and vomiting have resolved. She denies any abdominal pain or cramps. She has no prior similar history of GI issues and states that nobody else at home is sick. PHYSICAL EXAMINATION: GENERAL: She is a well-developed, well-nourished female. HEENT: [place] conjunctivae. LUNGS: Clear. HEART: Regular rate and rhythm on exam. ABDOMEN: Soft, flat abdomen. Normoactive bowel sounds and no tenderness. LABORATORY TESTS: Include normal electrolytes with the exception of a serum potassium of 3.1. Her liver chemistries were normal as was her serum lipase. Her white count was 10.7 with a hemoglobin of 12.3, hematocrit of 38.8. Patient most likely with a gastroenteritis possibly related to eating a piece of pizza with gamino. The differential diagnosis might also include nausea and vomiting related to marijuana use. The patient is clinically improved and will be started on a liquid diet currently. If she continues to do well, she can be followed as an outpatient. LAUREN GUDINO M.D. MEHRDAD/[id number]
== END 2020-05-21 14:34 | disposition home or self-care (01) | DRG 641 ==
LOC: FER 08:14 → FM/S 13:52
PROVIDERS: ADMIT Internal Medicine; ATTEND Nurse Practitioner Acute Care
DX: E87.6 Hypokalemia (principal); R11.2 Nausea with vomiting, unspecified
CPT/HCPCS: 36415; 80048; 80053; 83690; 83735; 85025; 99285-25; U0003

== ENCOUNTER 2023-09-26 07:34 | Emergency (ER) | payer OTHER ==
[2023-09-26 07:45] VITALS: BP 112/76; PULSE 66; RESP 20; TEMP 97.7; BMI 27.2
[2023-09-26] MEDS ORDERED: ACETAMINOPHEN 500 MG TABLET (FP) PO ONE (08:33)
[2023-09-26] MEDS ORDERED: LIDOCAINE 5% TOPICAL PATCH TP ONE (08:33)
[2023-09-26] MEDS ORDERED: ACETAMINOPHEN 325 MG TABLET (FP) ONE (08:45)
[2023-09-26] MEDS ORDERED: LIDOCAINE 4% PATCH TP ONE (08:45)
[2023-09-26] MEDS ORDERED: LIDOCAINE PATCH REMOVAL MC ONE (22:00)
== END 2023-09-26 11:32 | disposition home or self-care (01) ==
LOC: JER 07:34
DX: S89.91XA Unspecified injury of right lower leg, initial encounter (principal); V03.10XA Pedestrian on foot injured in collision with car, pick-up truck or van in traffic accident, initial encounter; Y92.9 Unspecified place or not applicable
CPT/HCPCS: 71046-TC-FY; 72070-TC-FY; 72100-TC-FY; 72170-TC-FY; 73562-TC-RT-FY; 84703; 99284-25

== ENCOUNTER → 2023-10-01 | Emergency (ER) | payer OTHER | END | disposition left against medical advice (07) | LOC: JER 13:42 | DX: M54.9 Dorsalgia, unspecified (principal) | CPT/HCPCS: 99281-25 ==

== ENCOUNTER 2024-04-04 10:21 | Emergency (ER) | payer OTHER ==
[2024-04-04 11:03] VITALS: BP 109/67; PULSE 78; RESP 16; TEMP 98.5; BMI 25.8
[2024-04-04 11:09] LABS: EPITHELIAL CELLS 0-5 /hpf
[2024-04-04] MEDS: SODIUM CHLORIDE 0.9% 500 ML INFUS.BAG IV ONE (11:15)
[2024-04-04 11:45] LABS: HEMATOCRIT 39.4 % (32.4-45.2); HEMOGLOBIN 12.4 G/dL (10.7-15.3); MCH 24.1 pg (25.7-33.7); MCHC 31.5 g/dl (32.0-36.0); MEAN CELL VOLUME 76.4 fl (80-96); MEAN PLT VOLUME 8.4 fl (7.5-11.1); PLATELET COUNT 286.1 10^3/uL (134-434); RBC 5.16 10^6/uL (3.60-5.2); RDW 16.3 % (11.6-15.6); WHITE BLOOD COUNT 16.8 10^3/uL (4.0-10.8)
[2024-04-04 11:58] LABS: ALBUMIN 4.4 g/dl (3.4-5.0); ALK PHOS 46 U/L (45-117); ANION GAP 7 mmol/L (4-13); BILIRUBIN,TOTAL 1.2 mg/dl (0.2-1); CALCIUM 9.5 mg/dl (8.5-10.1); CHLORIDE 104 mmol/L (98-107); CO2 25 mmol/L (21-32); CREATININE 0.8 mg/dl (0.6-1.3); GLUCOSE,RANDOM 102 mg/dl (74-106); POTASSIUM 4.2 mmol/L (3.5-5.1); SGOT/AST 15 U/L (15-37); SGPT/ALT 11 U/L (7-52); SODIUM 136 mmol/L (136-145); TOT PROT 7.2 g/dl (6.4-8.2)
[2024-04-04 12:35] LABS: ANISOCYTOSIS 1+; PLATELET ESTIMATE ADEQUATE
[2024-04-04] MEDS ORDERED: cefTRIAXone SODIUM 1 GM VIAL ONE (13:04)
[2024-04-04] MEDS: CEFTRIAXONE 1 GM in DEXTROSE 5%-WATER - 100 ML IVPB ONE (13:05)
== END 2024-04-04 13:38 | disposition home or self-care (01) ==
LOC: FER 10:21
DX: R11.2 Nausea with vomiting, unspecified (principal); R51.9 Headache, unspecified; N12 Tubulo-interstitial nephritis, not specified as acute or chronic
CPT/HCPCS: 36415; 74176-TC; 80053; 81003; 81015; 84703; 85027; 87040; 87086; 99284-25